=== PATIENT | male | born 1985 | race American Indian/Alaskan Native ===

== ENCOUNTER 2019-12-25 23:36 | Emergency (ER) | payer MEDICAID ==
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
[2019-12-26] MEDS ORDERED: ACETAMINOPHEN 500 MG TAB PO ONE (01:15)
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
[2019-12-26 01:54] VITALS: BP 160/80
== END 2019-12-26 01:55 | disposition home or self-care (01) ==
LOC: ED 23:36
DX: S46.911A Strain of unspecified muscle, fascia and tendon at shoulder and upper arm level, right arm, initial encounter (principal); S43.401A Unspecified sprain of right shoulder joint, initial encounter; N18.6 End stage renal disease; Z99.2 Dependence on renal dialysis; Z91.013 Allergy to seafood; Z91.09 Other allergy status, other than to drugs and biological substances; X58.XXXA Exposure to other specified factors, initial encounter; Y93.89 Activity, other specified; Y92.89 Other specified places as the place of occurrence of the external cause; Y99.8 Other external cause status